=== PATIENT | male | born 1975 | race Caucasian/White ===

== ENCOUNTER 2018-11-19 17:34 | Emergency (ER) | payer MEDICAID ==
[2018-11-19 17:40] VITALS: BP 150/97; PULSE 86; RESP 16; TEMP 98.1; O2SAT 99; BMI 30.4
[2018-11-19 20:11] LABS: BASO % 0.5 % (0.0-2.0); EOS % 0.5 % (0.0-4.0); HEMOGLOBIN 14.8 g/dL (12.0-18.0); LYMPH # 2.4 K/uL (1.0-4.3); LYMPH % 39.3 % (20.0-40.0); MEAN CELL VOLUME 82.9 fL (80.0-94.0); MEAN CORPUSCULAR HEMOGLOBIN 27.3 pg (27.0-31.0); MEAN CORPUSCULAR HGB CONC 32.9 g/dL (33.0-37.0); MEAN PLATELET VOLUME 7.9 fL (7.2-11.7); MONO # 0.4 K/uL (0.0-0.8); MONO % 6.3 % (0.0-10.0); NEUT # 3.2 K/uL (1.8-7.0); NEUT % 53.4 % (50.0-75.0); NRBC % 0.1 % (0.0-2.0); RBC 5.42 Mil/uL (4.40-5.90)
[2018-11-19 20:26] LABS: ALB/GLOB RATIO 1.3 (1.0-2.1); ALBUMIN 4.4 g/dL (3.5-5.0); ALT/SGPT 33 U/L (21-72); AST/SGOT 29 U/L (17-59); BLOOD UREA NITROGEN 13 mg/dL (9-20); CALCIUM 9.3 mg/dl (8.6-10.4); GFR NON-AFRICAN AMERICAN > 60
[2018-11-19 20:40] LABS: URINE BACTERIA RARE (<OCC); URINE BILIRUBIN NEGATIVE (NEGATIVE); URINE BLOOD 1+ (NEGATIVE); URINE CLARITY Clear (Clear); URINE COLOR Yellow (YELLOW); URINE GLUCOSE (UA) NORMAL (Normal); URINE LEUKOCYTE ESTERASE NEG Leu/uL (Negative); URINE PROTEIN NEGATIVE (NEGATIVE); URINE UROBILINOGEN NORMAL mg/dL (0.2-1.0)
--- NOTE | 2018-11-19 20:44 | C.PDOC ---
History Of Present Illness 43 year old male presents to the ED c/o dizziness that started at 03:00 this morning. Patient concerned he might have HTN. Patient denies fever, chills, recent illness, CP, SOB, palpitations, injury, fall, trauma. Time Seen by Provider: 11/19/18 18:20 Chief Complaint (Nursing): Dizziness/Lightheaded History Per: Patient History/Exam Limitations: no limitations Onset/Duration Of Symptoms: Hrs Current Symptoms Are (Timing): Still Present Associated Symptoms Preceding Syncopal Episode: No Predromal Symptoms (Sudden Onset) Seizure Or Post-ictal Symptoms: None Possible Causative Factor(s): denies: Vertigo Fall Associated With With Symptoms: No Severity: None Recent travel outside of the [place]: No Additional History Per: Patient Past Medical History Reviewed: Historical Data, Nursing Documentation, Vital Signs Vital Signs: Last Vital Signs Temp 98.1 F 11/19/18 17:39 Pulse 86 11/19/18 17:39 Resp 16 11/19/18 17:39 BP 150/97 H 11/19/18 17:39 Pulse Ox 99 11/19/18 17:39 - Medical History PMH: No Chronic Diseases Surgical History: No Surg Hx Family History: States: Unknown Family Hx - Social History Hx Alcohol Use: No Hx Substance Use: No - Immunization History Hx Tetanus Toxoid Vaccination: No Hx Influenza Vaccination: No Hx Pneumococcal Vaccination: No Review Of Systems Constitutional: Negative for: Fever, Chills Eyes: Negative for: Vision Change Cardiovascular: Negative for: Chest Pain, Palpitations Respiratory: Negative for: Shortness of Breath Gastrointestinal: Negative for: Nausea, Vomiting, Abdominal Pain Skin: Negative for: Rash Neurological: Negative for: Weakness, Numbness, Headache, Dizziness Physical Exam - Physical Exam Appears: Non-toxic, Other (anxious) Skin: Normal Color, Warm, Dry Head: Atraumatic, Normacephalic Eye(s): bilateral: Normal Inspection, PERRL, EOMI Nose: Other (erythema) Oral Mucosa: Moist Neck: Normal ROM, Supple Chest: Symmetrical Cardiovascular: Rhythm Regular Respiratory: Normal Breath Sounds, No Rales, No Rhonchi, No Wheezing Gastrointestinal/Abdominal: Soft, No Tenderness, No Guarding, No Rebound Extremity: Normal ROM, No Tenderness, No Swelling Neurological/Psych: Oriented x3, Normal Speech, Normal Cognition Gait: Steady ED Course And Treatment - Laboratory Results Result Diagrams: 11/19/18 20:05 11/19/18 20:05 Lab Results: Total Bilirubin 0.6 mg/dL (0.2-1.3) 11/19/18 20:05 AST 29 U/L (17-59) 11/19/18 20:05 ALT 33 U/L (21-72) 11/19/18 20:05 Alkaline Phosphatase 82 U/L (38-126) 11/19/18 20:05 Total Protein 7.7 g/dL (6.3-8.3) 11/19/18 20:05 Albumin 4.4 g/dL (3.5-5.0) 11/19/18 20:05 Globulin 3.3 gm/dL (2.2-3.9) 11/19/18 20:05 Albumin/Globulin Ratio 1.3 (1.0-2.1) 11/19/18 20:05 Lab Interpretation: Normal ECG: Interpreted By Me ECG Rhythm: Sinus Rhythm ECG Interpretation: Normal Rate From EC O2 Sat by Pulse Oximetry: 99 (ON RA) Pulse Ox Interpretation: Normal Reevaluation Time: 20:44 Reassessment Condition: Improved (symptoms resolved with ED tx) Medical Decision Making Medical Decision Making: benign exam and normal labs ? mild dizziness due to nasal inflammation pt suggests he is very stressed about [place] [employer] [place] which may be contributory reassured. Disposition Doctor Will See Patient In The: Office Counseled Patient/Family Regarding: Studies Performed, Diagnosis - Disposition Referrals: Lexie Snow [Medical Doctor] - Disposition: HOME/ ROUTINE Disposition Time: 20:45 Condition: GOOD Additional Instructions: continue Meclizine 25 mg every 6 hours as needed for dizziness Always take with Motrin 400- makes it more effective avoid stress follow-up with your PMD as needed. Prescriptions: Meclizine [Meclizine*] 25 mg PO Q6 PRN #30 tab PRN Reason: vertigo Instructions: Vertigo (a Type of Dizziness) (DC) Forms: [facility] (Mongolian) - Clinical Impression Clinical Impression: Dizziness - Scribe Statement The provider has reviewed the documentation as recorded by the Scribe Delroy Huang All medical record entries made by the Scribe were at my direction and personally dictated by me. I have reviewed the chart and agree that the record accurately reflects my personal performance of the history, physical exam, medical decision making, and the department course for this patient. I have also personally directed, reviewed, and agree with the discharge instructions and disposition.
[2018-11-19 20:52] LABS: BARBITURATES, UR NEGATIVE (NEGATIVE); BENZODIAZEPINES, UR NEGATIVE (NEGATIVE); OPIATES, UR NEGATIVE (NEGATIVE); PHENCYCLIDINE, UR NEGATIVE (NEGATIVE)
--- NOTE | 2018-11-20 13:36 | CARD ---
APPROVED REPORT Date of service: 11/19/2018 EKG Measurement Heart [id number] <Conclusion> Sinus bradycardia Otherwise normal ECG
== END 2018-11-19 20:40 | disposition home or self-care (01) ==
LOC: C.ER 17:34
DX: R42 Dizziness and giddiness (principal)